=== PATIENT | male | born 2000 | race American Indian/Alaskan Native ===

== ENCOUNTER 2021-09-25 06:48 | Emergency (ER) | payer MEDICAID ==
--- NOTE | 2021-09-25 08:22 | Emergency Department Report ---
ED ENT HPI - General Chief complaint: Earache Stated complaint: UNABLE TO HEAR OUT OF RT EAR Time Seen by Provider: 09/25/21 07:42 Source: patient Mode of arrival: Ambulatory Limitations: No Limitations - History of Present Illness Initial comments: 21-year-old black male with no past medical history presents to the emergency department for evaluation of muffled hearing to the right ear since yesterday. He states that hearing was worse when he woke up this morning. He denies any pain to his ear, cough, congestion, drainage from ear, or fever. MD complaint: other (Muffled hearing to the right ear only) -: days(s) (1) Location: R ear Severity scale (0 -10): 0 Associated Symptoms: hearing loss. denies: fever, cough, discharge from ear, rhinorrhea - Related Data Previous Rx's Medication Instructions Recorded Last Taken Type Neomy/Polymyx B/Hc (Otic) Soln 4 drops RTEAR TID #1 bottle 09/25/21 Unknown Rx [Cortisporin (Otic) Soln] Allergies Allergy/AdvReac Type Severity Reaction Status Date / Time No Known Allergies Allergy Verified 09/25/21 07:17 ED Dental HPI - General Chief complaint: Earache Stated complaint: UNABLE TO HEAR OUT OF RT EAR Time Seen by Provider: 09/25/21 07:42 Source: patient Mode of arrival: Ambulatory Limitations: No Limitations - Related Data Previous Rx's Medication Instructions Recorded Last Taken Type Neomy/Polymyx B/Hc (Otic) Soln 4 drops RTEAR TID #1 bottle 09/25/21 Unknown Rx [Cortisporin (Otic) Soln] Allergies Allergy/AdvReac Type Severity Reaction Status Date / Time No Known Allergies Allergy Verified 09/25/21 07:17 ED Review of Systems ROS: Stated complaint: UNABLE TO HEAR OUT OF RT EAR Other details as noted in HPI Constitutional: denies: fever Eyes: denies: eye pain, eye discharge ENT: hearing loss. denies: ear pain, throat pain, dental pain, congestion Respiratory: denies: cough, shortness of breath Cardiovascular: denies: chest pain Gastrointestinal: denies: nausea, vomiting Neurological: denies: headache ED Past Medical Hx - Surgical History Additional Surgical History: tonsilectomy - Social History Smoking Status: Never Smoker Substance Use Type: None - Medications Home Medications: Home Medications Medication Instructions Recorded Confirmed Last Taken Type Neomy/Polymyx B/Hc (Otic) Soln 4 drops RTEAR TID #1 bottle 09/25/21 Unknown Rx [Cortisporin (Otic) Soln] ED Physical Exam - General Limitations: No Limitations General appearance: alert, in no apparent distress - Head Head exam: Present: atraumatic, normocephalic - Eye Eye exam: Present: normal appearance. Absent: conjunctival injection - Expanded ENT Exam Expanded Ear exam: Present: normal external inspection. Absent: auricular hematoma, auricular trauma TM/Canal exam: Cerumen Impaction: Right TM, Left TM - Neck Neck exam: Present: normal inspection. Absent: tenderness, lymphadenopathy - Respiratory Respiratory exam: Absent: respiratory distress - Cardiovascular Cardiovascular Exam: Present: regular rate - GI/Abdominal GI/Abdominal exam: Absent: distended - Extremities Exam Extremities exam: Present: normal inspection - Back Exam Back exam: Present: normal inspection - Neurological Exam Neurological exam: Present: alert, oriented X3 - Psychiatric Psychiatric exam: Present: normal affect, normal mood - Skin Skin exam: Present: warm, dry, intact, normal color ED Course Vital Signs 09/25/21 07:12 Temperature 98.9 F Pulse Rate 77 Respiratory 12 Rate Blood Pressure 146/102 O2 Sat by Pulse 98 Oximetry - Ear Wax Removal Right Ear Cerumenolytic Used: Other (Carbamide peroxide otic solution (debrox)) Ear Canal Irrigated by: other (BUSHER HELPER) Ear Canal Irrigated With: warm saline using syringe/angiocath Results: Re-examined: some cerumen remains TM Visible: TM(s) intact, normal appe Ear Canal: other (Erythema noted) Patient Tolerated Procedure: well Complications: no problems ED Medical Decision Making - Medical Decision Making 21-year-old black male with no past medical history presents to the emergency department for evaluation of muffled hearing to the right ear since yesterday. He states that hearing was worse when he woke up this morning. He denies any pain to his ear, cough, congestion, drainage from ear, or fever. Patient noted to have cerumen impaction to bilateral ears, but only complains of hearing loss to right ear. Earwax removal to the right ear per my procedure note. Patient noted to have most of wax removed from right ear after procedure, but noted to have some erythema to the right ear canal. Patient was encouraged to use Debrox to the left ear also when he is home and was given prescription for Cortisporin drops and advised to use only if he develops pain to the ears or nose any discharge or fever. He was advised to follow-up with ear nose and throat doctor if no improvement or worsening symptoms. He verbalizes understanding of and agreement with plan of care. Critical care attestation.: If time is entered above; I have spent that time in minutes in the direct care of this critically ill patient, excluding procedure time. ED Disposition Clinical Impression: Impacted cerumen of right ear Disposition: 01 HOME / SELF CARE / HOMELESS Is pt being admited?: No Does the pt Need Aspirin: No Condition: Stable Instructions: Earwax Buildup, Adult, Ear Irrigation, Ear Drops, Adult, [id number] Additional Instructions: Use carbamide drops in both ears to improve wax buildup. Use Cortisporin drops if you develop irritation or pain after irrigating ears. Follow-up with ear nose throat doctor if no improvement or worsening symptoms. Return to the emergency department as needed. Prescriptions: Neomy/Polymyx B/Hc (Otic) Soln [Cortisporin (Otic) Soln] 4 drops RTEAR TID #1 bottle Referrals: ADELE CHRISTIANSON MD [Staff Physician] - 3-5 Days Forms: Work/School Release Form(ED) Time of Disposition: 08:54
[2021-09-25] MEDS ORDERED: CARBAMIDE PEROXIDE 6.5% OTIC DROPS 15 ML AU ONE (08:30)
[2021-09-25 09:25] VITALS: BP 132/78
== END 2021-09-25 09:23 | disposition home or self-care (01) ==
LOC: ED 06:48
DX: H61.21 Impacted cerumen, right ear (principal)
CPT/HCPCS: 99282

== ENCOUNTER 2021-11-05 10:01 | Emergency (ER) | payer MEDICAID ==
[2021-11-05] MEDS ORDERED: METOCLOPRAMIDE 10 MG TAB PO ONE (11:08)
[2021-11-05] MEDS ORDERED: diphenhydrAMINE 25 MG CAP PO ONE (11:08)
[2021-11-05] MEDS ORDERED: dexAMETHasone 4 MG/ML VIAL IM ONE (11:08)
--- NOTE | 2021-11-05 11:57 | Emergency Department Report ---
ED Headache HPI - General Chief Complaint: Headache Stated Complaint: MIGRAINE X5DAYS Time Seen by Provider: 11/05/21 10:57 - History of Present Illness Initial Comments: 21-year-old black male with no past medical history presents to the emergency department for evaluation of 3-day history of headache. He states that he has been taken Tylenol at home with a headache with some improvement but headache is not totally gone. He denies vision changes, dizziness, nausea, vomiting. He states that headache at this time is 4 out of 10. Quality: moderate Head Injury Location: frontal Associated Symptoms: denies: confusion, fatigue, facial pain, fever/chills, flushing, loss of consciousness, nausea/vomiting, nasal congestion, nasal drainage, numbness in legs/feet, rash, seizures, sinus infection, stiff neck, vision changes, weakness Allergies/Adverse Reactions: Allergies No Known Allergies Allergy (Verified 09/25/21 07:17) Home Medications: Ambulatory Orders Neomy/Polymyx B/Hc (Otic) Soln [Cortisporin (Otic) Soln] 4 drops RTEAR TID #1 bottle 09/25/21 Butalb/Acetaminophen/Caffeine [Fioricet 50-300-40 mg CAP] 1 cap PO Q6HR PRN #12 cap 11/05/21 ED Review of Systems ROS: Stated complaint: MIGRAINE X5DAYS Other details as noted in HPI Comment: All other systems reviewed and negative Constitutional: denies: chills, fever Eyes: denies: eye pain, vision change ENT: denies: ear pain, dental pain, congestion Respiratory: denies: cough, shortness of breath Cardiovascular: denies: chest pain, palpitations Gastrointestinal: denies: abdominal pain, nausea, vomiting Genitourinary: denies: urgency, dysuria Musculoskeletal: denies: back pain Skin: denies: rash, lesions Neurological: headache. denies: weakness, numbness, paresthesias, confusion, abnormal gait, vertigo ED Past Medical Hx - Past Medical History Previous Medical History?: No - Surgical History Past Surgical History?: No Additional Surgical History: tonsilectomy - Social History Smoking Status: Never Smoker - Medications Home Medications: Home Medications Medication Instructions Recorded Confirmed Last Taken Type Neomy/Polymyx B/Hc (Otic) Soln 4 drops RTEAR TID #1 bottle 09/25/21 Unknown Rx [Cortisporin (Otic) Soln] Butalb/Acetaminophen/Caffeine 1 cap PO Q6HR PRN #12 cap 11/05/21 Unknown Rx [Fioricet 50-300-40 mg CAP] ED Physical Exam - General Limitations: No Limitations General appearance: alert, in no apparent distress - Head Head exam: Present: atraumatic, normocephalic - Eye Eye exam: Present: normal appearance. Absent: scleral icterus, conjunctival injection, periorbital swelling, periorbital tenderness - ENT ENT exam: Present: normal exam - Neck Neck exam: Present: normal inspection. Absent: tenderness, lymphadenopathy - Respiratory Respiratory exam: Present: normal lung sounds bilaterally. Absent: respiratory distress, wheezes, rales, rhonchi, stridor, chest wall tenderness - Cardiovascular Cardiovascular Exam: Present: regular rate, normal heart sounds - GI/Abdominal GI/Abdominal exam: Present: soft, normal bowel sounds. Absent: tenderness, guarding, rebound, rigid - Extremities Exam Extremities exam: Present: normal inspection, normal capillary refill - Back Exam Back exam: Present: normal inspection. Absent: vertebral tenderness - Neurological Exam Neurological exam: Present: alert, oriented X3, CN II-XII intact, normal gait, reflexes normal. Absent: motor sensory deficit - Expanded Neurological Exam Expanded Patient oriented to: Present: person, place, time Speech: Present: fluid speech Cranial nerves: EOM's Intact: Normal, Gag Reflex: Normal, Tongue Deviation: Normal, Facial Sensation: Normal Cerebellar function: Romberg: Normal Upper motor neuron: Pronator Drift: Normal Sensory exam: Upper Extremity Light Touch: Normal, Upper Extremity Temperature: Normal, Lower Extremity Light Touch: Normal, Lower Extremity Temperature: Normal Best Eye Response ([place]): (4) open spontaneously Best Motor Response ([place]): (6) obeys commands Best Verbal Response ([place]): (5) oriented Juanita Total: 15 - Psychiatric Psychiatric exam: Present: normal affect, normal mood - Skin Skin exam: Present: warm, dry, intact, normal color ED Course Vital Signs 11/05/21 10:17 Temperature 98.9 F Pulse Rate 99 H Respiratory 14 Rate Blood Pressure 150/90 O2 Sat by Pulse 97 Oximetry ED Medical Decision Making - Medical Decision Making 21-year-old black male with no past medical history presents to the emergency department for evaluation of 3-day history of headache. He states that he has been taken Tylenol at home with a headache with some improvement but headache is not totally gone. He denies vision changes, dizziness, nausea, vomiting. He states that headache at this time is 4 out of 10. Physical exam unremarkable. Headache totally resolved after medication. Patient be discharged home with prescription for Fioricet and advised to follow- up with his primary care provider if worsening symptoms. He is advised to return to the emergency department for any concerning symptoms. He verbalizes understanding of and agreement with plan of care. Critical care attestation.: If time is entered above; I have spent that time in minutes in the direct care of this critically ill patient, excluding procedure time. ED Disposition Clinical Impression: Headache Qualifiers: Headache type: unspecified Headache chronicity pattern: acute headache Intractability: not intractable Qualified Code(s): R51.9 - Headache, unspecified Disposition: 01 HOME / SELF CARE / HOMELESS Is pt being admited?: No Does the pt Need Aspirin: No Condition: Stable Instructions: General Headache Without Cause, [id number] Additional Instructions: Take medications as prescribed. Follow-up with your primary care provider if no improvement or worsening symptoms. Return to the emergency department as needed. Prescriptions: Butalb/Acetaminophen/Caffeine [Fioricet 50-300-40 mg CAP] 1 cap PO Q6HR PRN #12 cap PRN Reason: Headache Referrals: JOSEPH ALLEN MD [Staff Physician] - 3-5 Days Time of Disposition: 11:57
[2021-11-05 12:09] VITALS: BP 117/67
== END 2021-11-05 13:21 | disposition home or self-care (01) ==
LOC: ED 10:01
DX: R51.9 Headache, unspecified (principal); Z98.890 Other specified postprocedural states
CPT/HCPCS: 96372; 99282; J1100